=== PATIENT | female | born 1960 | race Caucasian/White ===

== ENCOUNTER 2021-09-22 16:06 | Emergency (ER) | payer OTHER ==
[~2021-09-22 16:06] MED LIST: BACLOFEN 10MG T10 MG PO; CELEXA20 MG PO; FEOSOL325 MG PO; IBUPROFEN200 MG PO; PERCOCET 5/3251 TAB PO; PROTONIX 40MG T40 MG PO; SYNTHROID88 MCG PO; XARELTO10 MG PO; ZESTORETIC 20-1 EACH PO
== END 2021-09-22 19:25 | disposition home or self-care (01) ==
LOC: FER 16:06
DX: S00.83XA Contusion of other part of head, initial encounter (principal); I10 Essential (primary) hypertension; Z88.2 Allergy status to sulfonamides; Z88.5 Allergy status to narcotic agent; Z79.899 Other long term (current) drug therapy; V49.9XXA Car occupant (driver) (passenger) injured in unspecified traffic accident, initial encounter
CPT/HCPCS: 99283